=== PATIENT | male | born 2000 | race Caucasian/White ===

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

== ENCOUNTER → 2021-05-16 | Outpatient (CLI) | payer OTHER ==
[~2021-05-16] MED LIST: IBU800 MG PO
== END | disposition home or self-care (01) ==
LOC: COVID19 15:20
PROVIDERS: ATTEND Internal Medicine
DX: Z11.52 Encounter for screening for COVID-19 (principal)

== ENCOUNTER 2021-08-10 11:30 | Emergency (ER) | payer BC ==
[~2021-08-10] VITALS: Ht 172.7 cm; Wt 72.6 kg
[2021-08-10] MEDS ORDERED: NAPROSYN500 MG PO (13:17)
== END 2021-08-10 13:39 | disposition home or self-care (01) ==
LOC: ED 11:30
DX: R59.0 Localized enlarged lymph nodes (principal)